=== PATIENT | male | born 1975 | race Caucasian/White ===

== ENCOUNTER 2021-03-17 13:22 | Outpatient (CLI) | payer OTHER ==
--- NOTE | 2021-03-17 14:54 | XRAY Report ---
PROCEDURE: Chest 2 View X-Ray INDICATIONS: COUGH POST COVID TECHNIQUE: 2 view(s) of the chest. COMPARISON: None. FINDINGS: Surgical changes and devices: None. Lungs and pleura: No pleural effusions or pneumothorax. Lungs are clear. Mediastinum: Mediastinal contours are normal. Heart size is normal. Bones and chest wall: No suspicious bony abnormalities. Soft tissues appear unremarkable. IMPRESSION: No acute cardiopulmonary process demonstrated radiographically. Reviewed by: Tucker Marcano MD on 03/17/2021 1:53 PM [facility] Approved by: Tucker Marcano MD on 03/17/2021 1:53 PM [facility] Station ID: [id number]
--- NOTE | 2021-03-17 17:04 | Ultrasound Report ---
PROCEDURE: Ultrasound bladder INDICATIONS: Frequency of micturition, cough postcode with TECHNIQUE: Real-time focused scanning was performed of the urinary bladder, with image documentation. COMPARISON: None. FINDINGS: Prevoid urinary bladder volume 499 cc. Postvoid urinary bladder residual volume 17 cc. Uri nary bladder is sonographically normal. No bladder masses identified. No urinary bladder stones ident ified. Prostate is mildly enlarged measuring 4.4 x 4.2 x 5.7 cm. IMPRESSION: No sonographic abnormality identified in the urinary bladder. Reviewed by: Natasha Flores MD, PhD on 03/17/2021 5:03 PM PST Approved by: Natasha Flores MD, PhD on 03/17/2021 5:03 PM PST Station ID: [id number]
== END 2021-03-17 13:23 | disposition home or self-care (01) ==
LOC: DI 13:22
PROVIDERS: ATTEND Internal Medicine
DX: U09.9 Post COVID-19 condition, unspecified (principal); R05.9 Cough, unspecified; R35.0 Frequency of micturition

== ENCOUNTER 2022-03-19 14:00 | Outpatient (CLI) | payer OTHER ==
--- NOTE | 2022-03-20 08:36 | XRAY Report ---
PROCEDURE: Lumbar Spine 2 View INDICATIONS: LOW BACK PX TECHNIQUE: 3 views of the lumbar spine were acquired. COMPARISON: None. FINDINGS: Bones: 5 [id number] vertebrae are present. No significant curvature of the lumbar spine. 2 mm retrolisthesis L4 on L5, 4 mm retrolisthesis L3 on L4, 3 mm retrolisthesis L2 on L3, 2 mm retrolisthe sis L1 on L2. Moderate multilevel degenerative changes with disc height loss, endplate spurring, and facet arthropathy. No vertebral body compression fractures. No suspicious bony lesions. Soft tissues: Overlying bowel gas pattern is normal. No suspicious soft tissue calcifications. IMPRESSION: Multilevel degenerative changes of the lumbar spine. Reviewed by: Bret Deras MD on 03/20/2022 8:35 AM PST Approved by: Bret Deras MD on 03/20/2022 8:35 AM PST Station ID: [id number]
--- NOTE | 2022-03-20 08:43 | XRAY Report ---
PROCEDURE: Hip w/Pelvis 1V LT INDICATIONS: L HIP PX TECHNIQUE: AP pelvis with lateral view(s) of the left hip(s). COMPARISON: None. FINDINGS: Bones: No fractures or dislocations. Pelvic ring appears intact. No suspicious bony lesions. Moder ate-severe degenerative changes of the left hip with joint space narrowing and spurring present. Mild right hip degenerative changes also present. Soft tissues: The visualized bowel gas pattern is normal. No suspicious soft tissue calcifications. IMPRESSION: Moderate-severe degenerative changes of the left hip. If symptoms persist, follow-up rad iographs and/or CT or MRI may be helpful for further evaluation. Reviewed by: Bret Deras MD on 03/20/2022 8:42 AM PST Approved by: Bret Deras MD on 03/20/2022 8:42 AM PST Station ID: [id number]
== END 2022-03-19 14:01 | disposition home or self-care (01) ==
LOC: DI.N 14:00
PROVIDERS: ATTEND Internal Medicine
DX: M47.816 Spondylosis without myelopathy or radiculopathy, lumbar region (principal); M43.16 Spondylolisthesis, lumbar region; M16.12 Unilateral primary osteoarthritis, left hip

== ENCOUNTER 2022-10-08 11:43 | Outpatient (CLI) | payer OTHER ==
--- NOTE | 2022-10-08 15:40 | Ultrasound Report ---
PROCEDURE: Testicle INDICATIONS: LEFT TESTICLE PAIN TECHNIQUE: Real-time scanning was performed of the scrotum and testicles, with image documentation. Color and p ulse Doppler interrogation was performed of both testicles. COMPARISON: None. FINDINGS: Right: Testicle is normal in size at 4.6 x 2.2 x 2.8 cm, and homogenous in echotexture. Epididymis is heterogeneous in echotexture. No discrete epididymal lesion is seen. No hydrocele or varicoceles. Overlying scrotal skin is normal in thickness. Left: Testicle is normal in size at 3.7 x 2.2 x 2.6 cm, and homogeneous in echotexture. Epididymis is heterogeneous in echotexture. 3.3 mm cyst is seen in left epididymal head. Moderate left hydrocele is seen measures up to 4.1 x 1.1 x 1.3 cm in size. Overlying scrotal skin is normal in thickness. Doppler: Color and pulse Doppler demonstrate normal and symmetric arterial flow in both testicles. IMPRESSION: 1. Heterogeneous bilateral epididymal parenchymal echotexture is suggestive of epididymitis. No discr ete solid appearing epididymal lesion. Tiny left epididymal head cyst as above. 2. Normal bilateral testes. 3. Moderate size left-sided hydrocele. Reviewed by: Bijan Hernandez MD on 10/08/2022 3:38 PM PDT Approved by: Bijan Hernandez MD on 10/08/2022 3:38 PM PDT Station ID: [id number]
== END 2022-10-08 11:44 | disposition home or self-care (01) ==
LOC: DI 11:43
PROVIDERS: ATTEND Student in an Organized Health Care Education/Training Program
DX: N50.3 Cyst of epididymis (principal); N43.3 Hydrocele, unspecified